=== PATIENT | female | born 1940 | race African-American/Black ===

== ENCOUNTER 2018-06-28 16:37 | Emergency (ER) | payer OTHER ==
[~2018-06-28] VITALS: Ht 157.5 cm; Wt 103.0 kg
[2018-06-28] MEDS ORDERED: ISOS20TA8 MT (17:00)
[2018-06-28] MEDS ORDERED: METF-416 MT (17:00)
[2018-06-28] MEDS ORDERED: FELO10TA MT (17:00)
[2018-06-28] MEDS ORDERED: FURO40TA5 MT (17:00)
[2018-06-28] MEDS ORDERED: ANAS1TAB7 MT (17:00)
[2018-06-28] MEDS ORDERED: P20 MT (17:00)
[2018-06-28] MEDS ORDERED: HYDR-4134 MT (17:00)
[2018-06-28 18:01] VITALS: BP 127/87
== END 2018-06-28 18:01 | disposition home or self-care (01) ==
LOC: ER 16:37
DX: I11.0 Hypertensive heart disease with heart failure (principal); I50.9 Heart failure, unspecified; Z79.899 Other long term (current) drug therapy; Z88.8 Allergy status to other drugs, medicaments and biological substances
CPT/HCPCS: 99283

== ENCOUNTER 2019-01-05 14:25 | Inpatient (IN) | payer OTHER ==
[~2019-01-05] VITALS: Ht 165.1 cm; Wt 101.3 kg
[~2019-01-05 14:25] MED LIST: ANAS1TAB7 MT; FELO10TA MT; FURO40TA5 MT; HYDR-4134 MT; ISOS20TA8 MT; METF-416 MT; P20 MT
[2019-01-05] MEDS ORDERED: NITROGLYCERIN OINT 1GM/INCH UDPKT TD ONE (15:15)
[2019-01-05] MEDS ORDERED: FUROSEMIDE 40MG/4ML VIAL IV ONE (15:15)
[2019-01-05] MEDS ORDERED: ASPIRIN 81MG TABLET PO ONE (15:15)
[2019-01-05 16:18] LABS: CHLORIDE 95 mEq/L (98-107)
[2019-01-05 16:29] LABS: INR 1.3; PARTIAL THROMBOPLASTIN TIME 28.5 sec (23.4-31.0); PROTHROMBIN TIME 13.1 sec (9.6-11.0)
[2019-01-05 16:36] LABS: HEMATOCRIT. 34.1 % (36.0-48.0); HEMOGLOBIN. 11.3 g/dL (12.0-16.0); MEAN CORPUSCULAR VOLUME 84.6 fL (81.0-99.0); MEAN PLATELET VOLUME 8.8 fl (7.4-10.4); PLATELET 233 x1000/uL (130-400); RED BLOOD CELL COUNT 4.04 mill/uL (4.2-5.4); RED CELL DISTRIBUTION WIDTH 16.8 % (11.6-14.6)
[2019-01-05] MEDS ORDERED: HEPARIN 25,000 UNITS PREMIX 500 ML IV SCH ×2 (17:00→23:15)
[2019-01-05] MEDS ORDERED: HEPARIN 5000 UNITS/ML VIAL IV ONE (17:00)
[2019-01-05 17:08] LABS: PLATELET ESTIMATE NORMAL
[2019-01-05] MEDS ORDERED: HEPARIN BOLUS PRN aPTT 37-44 IV (17:15)
[2019-01-05] MEDS ORDERED: HEPARIN BOLUS PRN aPTT <36 IV (17:15)
[2019-01-05] MEDS ORDERED: HEPARIN 80 UNITS/KG BOLUS IV NR (17:30)
[2019-01-05] MEDS: HEPARIN 25,000 UNITS PREMIX 500 ML IV SCH (17:50)
[2019-01-05 20:40] VITALS: BP 103/49
[2019-01-05] MEDS ORDERED: IPRATROPIUM/ALBUTEROL 0.5-3(2.5)MG/3ML NEB HHN PRN (23:30)
[2019-01-05] MEDS ORDERED: DEXTROSE 50% WATER 50ML SYRINGE IV PRN (23:30)
[2019-01-05] MEDS ORDERED: MAGNESIUM/ALUMINUM HYDROXIDE/SIMETHICONE 30ML UDC PO PRN (23:30)
[2019-01-05] MEDS: BLOOD SUGAR DIAGNOSTIC STRIP TEST SCH (23:45)
[2019-01-05] MEDS: INSULIN LISPRO 100 UNITS/ML SUBCUT SCH (23:56)
[2019-01-06] VITALS (7 sets, daily range): BP systolic 94–113; BP diastolic 49–57
[2019-01-06 01:07] LABS: INR 1.3; PROTHROMBIN TIME 12.7 sec (9.6-11.0)
[2019-01-06] MEDS: PANTOPRAZOLE 40MG DR TABLET PO SCH (06:20)
[2019-01-06] MEDS: BLOOD SUGAR DIAGNOSTIC STRIP TEST SCH ×3 (06:25→21:00)
[2019-01-06] MEDS: INSULIN LISPRO 100 UNITS/ML SUBCUT SCH ×4 (06:34→22:08)
[2019-01-06 06:55] LABS: HEMATOCRIT 30.3 % (36.0-48.0); HEMOGLOBIN 10.2 g/dL (12.0-16.0); MEAN CORPUSCULAR HEMOGLOBIN 28.3 pg (28.0-32.0); MEAN CORPUSCULAR VOLUME 84.3 fL (81.0-99.0); PLATELET 223 x1000/uL (130-400); RED CELL DISTRIBUTION WIDTH 16.7 % (11.6-14.6)
[2019-01-06 07:52] LABS: CHLORIDE 97 mEq/L (98-107)
[2019-01-06 08:01] LABS: LDL CHOLESTEROL 34 mg/dL (5-100)
[2019-01-06 08:02] LABS: HDL CHOLESTEROL 56 mg/dL (40-59)
[2019-01-06] MEDS: HYDROCODONE/ACETAMINOPHEN 5/325MG TABLET PO PRN (10:53)
[2019-01-06] MEDS ORDERED: HYDRALAZINE 20MG/ML VIAL IV PRN (12:00)
[2019-01-06] MEDS ORDERED: DIPHENHYDRAMINE 50MG/ML VIAL IV PRN (12:00)
[2019-01-06 12:11] LABS: INR 1.2; PARTIAL THROMBOPLASTIN TIME 47.3 sec (23.4-31.0); PROTHROMBIN TIME 12.1 sec (9.6-11.0)
[2019-01-06 14:09] LABS: BG CARBOXYHEMOGLOBIN 0.4 % (0.5-1.5); BG FRACTION INSPIRED OXYGEN 21; BG HCO3 ACT 23.1 mmol/L (22.0-26.0); BG METHEMOGLOBIN 0.5 % (0.0-1.5); BG OXYGEN SATURATION 83.9 % (92.0-98.5); BG OXYHEMOGLOBIN 83.1 % (94.0-97.0); BG PCO2 45.8 mmHg (35.0-45.0); BG PH 7.321 (7.350-7.450); BG PO2 53.3 mmHg (75.0-100.0); BG SAMPLE SITE LEFT RADIAL; BG TOTAL HEMOGLOBIN 11.4 g/dL (12.0-18.0); BG VENT MODE ROOM AIR
[2019-01-06] MEDS ORDERED: SODIUM CHLORIDE 0.9% 1,000 ML IV ONE (15:00)
[2019-01-06] MEDS: HEPARIN 25,000 UNITS PREMIX 500 ML IV SCH (15:04)
[2019-01-06] MEDS ORDERED: CYAN1TAB43 MT (19:57)
[2019-01-06] MEDS ORDERED: DOCU-150 PO (19:57)
[2019-01-06] MEDS ORDERED: ASPI-1158 PO (19:57)
[2019-01-06] MEDS ORDERED: POTASSIUM CL 10% PO (19:57)
[2019-01-06] MEDS ORDERED: ALIS300T PO (19:57)
[2019-01-06] MEDS ORDERED: POTA-79 PO (19:57)
[2019-01-06 22:36] LABS: CLARITY URINE CLOUDY (CLEAR); COLOR URINE YELLOW (YELLOW); KETONES URINE NEGATIVE (NEGATIVE); LEUKOCYTE ESTERASE URINE 2+ (NEGATIVE); NITRITE URINE NEGATIVE (NEGATIVE); OCCULT BLOOD URINE NEGATIVE (NEGATIVE); PROTEIN URINE NEGATIVE (NEGATIVE); SPECIFIC GRAVITY URINE 1.014 (1.005-1.030); UROBILINOGEN URINE 0.2 E.U./dL (0.2-1.0)
[2019-01-06 22:53] LABS: *AMPHETAMINES SCREEN URINE NEGATIVE (NEGATIVE); *BARBITURATES SCREEN URINE NEGATIVE (NEGATIVE); *BENZODIAZEPINES SCREEN URINE NEGATIVE (NEGATIVE); *COCAINE SCREEN URINE NEGATIVE (NEGATIVE)
[2019-01-06 22:54] LABS: CANNABINOID URINE SCREEN NEGATIVE (NEGATIVE); METHADONE URINE SCREEN NEGATIVE (NEGATIVE); OPIATES URINE SCREEN PRESUMTIVE POSITIVE (NEGATIVE); PHENCYCLIDINE URINE SCREEN NEGATIVE (NEGATIVE)
[2019-01-07] VITALS (18 sets, daily range): BP systolic 96–126; BP diastolic 51–73
[2019-01-07] MEDS: IPRATROPIUM/ALBUTEROL 0.5-3(2.5)MG/3ML NEB HHN SCH ×4 (01:43→22:26)
[2019-01-07] MEDS: BLOOD SUGAR DIAGNOSTIC STRIP TEST SCH ×4 (06:22→21:07)
[2019-01-07] MEDS: PANTOPRAZOLE 40MG DR TABLET PO SCH (06:22)
[2019-01-07] MEDS: INSULIN LISPRO 100 UNITS/ML SUBCUT SCH ×4 (07:21→21:51)
[2019-01-07 08:58] LABS: HEMATOCRIT 31.1 % (36.0-48.0); HEMOGLOBIN 10.2 g/dL (12.0-16.0); MEAN CORPUSCULAR HEMOGLOBIN 27.9 pg (28.0-32.0); MEAN CORPUSCULAR VOLUME 85.3 fL (81.0-99.0); PLATELET 219 x1000/uL (130-400); RED BLOOD CELL COUNT 3.65 mill/uL (4.2-5.4)
[2019-01-07] MEDS: BUDESONIDE 0.5MG/2ML NEB HHN SCH ×3 (09:24→22:25)
[2019-01-07 09:38] LABS: T4 FREE 1.47 ng/dL (0.76-1.46)
[2019-01-07] MEDS ORDERED: LIDOCAINE HCL 1% 20ML VIAL (Pyxis) INJ ONE (10:26)
[2019-01-07] MEDS ORDERED: SODIUM BICARBONATE 4% (2.4MEQ) 5ML VIAL IV ONE (10:27)
[2019-01-07] MEDS ORDERED: FENTANYL CITRATE/PF 50MCG/ML 2ML VIAL ONE (11:06)
[2019-01-07] MEDS ORDERED: FLUCONAZOLE 200 MG/100ML BAG 100 MG in CONTAINER,EMPTY 0 BAG IV SCH (11:30)
[2019-01-07] MEDS ORDERED: FENTANYL CITRATE/PF 50MCG/ML 2ML VIAL IV ONE (12:00)
[2019-01-07] MEDS: LEVOFLOXACIN 500MG PREMIX 100 ML IV NR ×2 (13:53→15:14)
[2019-01-07] MEDS ORDERED: HEPARIN 25,000 UNITS PREMIX 500 ML IV SCH (14:00)
[2019-01-07] MEDS: HEPARIN 25,000 UNITS PREMIX 500 ML IV SCH (18:11)
[2019-01-07] MEDS: HYDROCODONE/ACETAMINOPHEN 5/325MG TABLET PO PRN (23:41)
[2019-01-08 00:23] VITALS: BP 148/62
[2019-01-08 04:00] VITALS: BP 115/57
[2019-01-08 06:13] LABS: HEMATOCRIT 29.5 % (36.0-48.0); HEMOGLOBIN 9.8 g/dL (12.0-16.0); MEAN CORPUSCULAR HEMOGLOBIN 27.9 pg (28.0-32.0); PLATELET 225 x1000/uL (130-400); RED BLOOD CELL COUNT 3.51 mill/uL (4.2-5.4)
[2019-01-08 06:32] LABS: CHLORIDE 100 mEq/L (98-107)
[2019-01-08] MEDS: PANTOPRAZOLE 40MG DR TABLET PO SCH (06:49)
[2019-01-08] MEDS: BLOOD SUGAR DIAGNOSTIC STRIP TEST SCH ×4 (06:49→21:22)
[2019-01-08] MEDS: INSULIN LISPRO 100 UNITS/ML SUBCUT SCH ×4 (06:53→21:38)
[2019-01-08 08:00] VITALS: BP 133/61
[2019-01-08] MEDS: DOCUSATE SODIUM 100MG CAPSULE PO PRN (08:56)
[2019-01-08 12:00] VITALS: BP 109/59
[2019-01-08] MEDS ORDERED: LEVOFLOXACIN 250MG PREMIX 50 ML IV SCH (12:00)
[2019-01-08] MEDS ORDERED: FLUCONAZOLE 200 MG/100ML BAG 100 ML IV SCH (14:00)
[2019-01-08] MEDS: IPRATROPIUM/ALBUTEROL 0.5-3(2.5)MG/3ML NEB HHN SCH ×2 (15:25→20:46)
[2019-01-08 16:00] VITALS: BP 112/50
[2019-01-08] MEDS: APIXABAN 5 MG TABLET PO SCH (18:23)
[2019-01-08 20:00] VITALS: BP 124/61
[2019-01-08] MEDS: BUDESONIDE 0.5MG/2ML NEB HHN SCH (20:46)
[2019-01-08] MEDS: HYDROCODONE/ACETAMINOPHEN 5/325MG TABLET PO PRN (21:22)
[2019-01-09] VITALS: BP 118/63
[2019-01-09] MEDS: IPRATROPIUM/ALBUTEROL 0.5-3(2.5)MG/3ML NEB HHN SCH ×4 (01:30→22:12)
[2019-01-09 04:00] VITALS: BP 117/48
[2019-01-09] MEDS: PANTOPRAZOLE 40MG DR TABLET PO SCH (06:38)
[2019-01-09] MEDS: INSULIN LISPRO 100 UNITS/ML SUBCUT SCH ×4 (06:38→20:34)
[2019-01-09] MEDS: BLOOD SUGAR DIAGNOSTIC STRIP TEST SCH ×4 (06:38→20:34)
[2019-01-09 07:12] LABS: HEMOGLOBIN 9.5 g/dL (12.0-16.0); MEAN CORPUSCULAR HEMOGLOBIN 27.7 pg (28.0-32.0); MEAN CORPUSCULAR VOLUME 84.6 fL (81.0-99.0); PLATELET 215 x1000/uL (130-400); RED BLOOD CELL COUNT 3.43 mill/uL (4.2-5.4); RED CELL DISTRIBUTION WIDTH 16.9 % (11.6-14.6)
[2019-01-09 07:33] LABS: CHLORIDE 99 mEq/L (98-107)
[2019-01-09] MEDS: BUDESONIDE 0.5MG/2ML NEB HHN SCH (08:10)
[2019-01-09 08:27] VITALS: BP 112/60
[2019-01-09] MEDS: APIXABAN 5 MG TABLET PO SCH ×2 (08:58→18:28)
[2019-01-09 11:51] VITALS: BP 106/53
[2019-01-09] MEDS ORDERED: LACTULOSE 20G/30ML UDC PO PRN (12:45)
[2019-01-09] MEDS ORDERED: LACTULOSE 20G/30ML UDC PO NR (12:45)
[2019-01-09] MEDS ORDERED: LEVOFLOXACIN 250MG TABLET PO SCH (14:00)
[2019-01-09 15:17] VITALS: BP 117/56
[2019-01-09] MEDS ORDERED: CEFTRIAXONE 1 G PREMIX 50 ML IV SCH (17:45)
[2019-01-09] MEDS: FLUCONAZOLE 100MG TABLET PO SCH (18:28)
[2019-01-09 20:00] VITALS: BP 111/54
[2019-01-09] MEDS: CEFTRIAXONE 1 G PREMIX 50 ML IV SCH (20:35)
[2019-01-09] MEDS ORDERED: NON FORMULARY PATIENT HOME MED PO PRN (21:15)
[2019-01-09] MEDS: ACETAMINOPHEN 325MG TABLET PO PRN (21:35)
[2019-01-10] VITALS: BP 90/44
[2019-01-10] MEDS: IPRATROPIUM/ALBUTEROL 0.5-3(2.5)MG/3ML NEB HHN SCH ×4 (02:48→21:00)
[2019-01-10 04:00] VITALS: BP 98/62
[2019-01-10] MEDS: BLOOD SUGAR DIAGNOSTIC STRIP TEST SCH ×4 (06:36→21:07)
[2019-01-10] MEDS: PANTOPRAZOLE 40MG DR TABLET PO SCH (06:36)
[2019-01-10 06:55] LABS: BASOPHILS % 0.4 % (0.0-2.0); EOSINOPHILS % 3.6 % (0.0-5.0); HEMATOCRIT. 29.2 % (36.0-48.0); HEMOGLOBIN. 9.6 g/dL (12.0-16.0); LYMPHOCYTES % 18.8 % (20.0-50.0); MEAN CORPUSCULAR HEMOGLOBIN 27.7 pg (28.0-32.0); MEAN CORPUSCULAR VOLUME 84.5 fL (81.0-99.0); MEAN PLATELET VOLUME 8.4 fl (7.4-10.4); MONOCYTES % 10.7 % (2.0-8.0); NEUTROPHILS % 66.5 % (40.0-76.0); PLATELET 233 x1000/uL (130-400); RED BLOOD CELL COUNT 3.45 mill/uL (4.2-5.4); RED CELL DISTRIBUTION WIDTH 16.8 % (11.6-14.6)
[2019-01-10] MEDS: INSULIN LISPRO 100 UNITS/ML SUBCUT SCH ×4 (06:57→21:18)
[2019-01-10 07:04] LABS: CHLORIDE 99 mEq/L (98-107)
[2019-01-10] MEDS ORDERED: NA PHOS,M-B/NA PHOS,DI-BA ENEMA 118ML PR NR (08:15)
[2019-01-10 08:18] VITALS: BP 109/62
[2019-01-10] MEDS: FLUCONAZOLE 100MG TABLET PO SCH (09:43)
[2019-01-10] MEDS: APIXABAN 5 MG TABLET PO SCH ×2 (09:43→17:12)
[2019-01-10] MEDS: BUDESONIDE 0.5MG/2ML NEB HHN SCH (10:15)
[2019-01-10 11:39] VITALS: BP 89/53
[2019-01-10] MEDS: ACETAMINOPHEN 325MG TABLET PO PRN (14:25)
[2019-01-10] MEDS: DOCUSATE SODIUM 100MG CAPSULE PO PRN (14:28)
[2019-01-10 15:40] VITALS: BP 121/58
[2019-01-10] MEDS ORDERED: LIRA0.6P SQ (15:51)
[2019-01-10 20:00] VITALS: BP 109/60
[2019-01-10] MEDS: CEFTRIAXONE 1 G PREMIX 50 ML IV SCH (21:06)
[2019-01-10] MEDS: HYDROCODONE/ACETAMINOPHEN 5/325MG TABLET PO PRN (23:37)
[2019-01-11] VITALS: BP 114/57
[2019-01-11] MEDS: IPRATROPIUM/ALBUTEROL 0.5-3(2.5)MG/3ML NEB HHN SCH ×4 (02:24→20:28)
[2019-01-11 04:00] VITALS: BP 117/57
[2019-01-11] MEDS: BLOOD SUGAR DIAGNOSTIC STRIP TEST SCH ×4 (06:45→21:08)
[2019-01-11 06:52] LABS: BASOPHILS % 0.7 % (0.0-2.0); EOSINOPHILS % 4.4 % (0.0-5.0); HEMATOCRIT. 32.3 % (36.0-48.0); HEMOGLOBIN. 10.4 g/dL (12.0-16.0); LYMPHOCYTES % 17.5 % (20.0-50.0); MEAN CORPUSCULAR HEMOGLOBIN 27.5 pg (28.0-32.0); MEAN CORPUSCULAR VOLUME 85.4 fL (81.0-99.0); MEAN PLATELET VOLUME 8.2 fl (7.4-10.4); NEUTROPHILS % 67.4 % (40.0-76.0); PLATELET 253 x1000/uL (130-400); RED BLOOD CELL COUNT 3.78 mill/uL (4.2-5.4); RED CELL DISTRIBUTION WIDTH 16.8 % (11.6-14.6)
[2019-01-11 07:05] LABS: CHLORIDE 101 mEq/L (98-107)
[2019-01-11 08:00] VITALS: BP 111/56
[2019-01-11] MEDS: INSULIN LISPRO 100 UNITS/ML SUBCUT SCH ×4 (08:19→21:00)
[2019-01-11] MEDS: FLUCONAZOLE 100MG TABLET PO SCH (08:20)
[2019-01-11] MEDS: APIXABAN 5 MG TABLET PO SCH ×2 (08:20→17:56)
[2019-01-11] MEDS: FAMOTIDINE 20MG TABLET PO SCH ×2 (08:21→17:56)
[2019-01-11 12:00] VITALS: BP 111/58
[2019-01-11] MEDS ORDERED: SODIUM POLYSTYRENE SULFONATE 15 G/60 ML BOT PO NR (12:30)
[2019-01-11] MEDS: ACETAMINOPHEN 325MG TABLET PO PRN (13:00)
[2019-01-11 16:00] VITALS: BP 113/61
[2019-01-11] MEDS: CEFTRIAXONE 1 G PREMIX 50 ML IV SCH (18:58)
[2019-01-11 20:00] VITALS: BP 104/56
[2019-01-12] VITALS: BP 118/59
[2019-01-12] MEDS: ACETAMINOPHEN 325MG TABLET PO PRN ×2 (00:51→09:21)
[2019-01-12] MEDS: IPRATROPIUM/ALBUTEROL 0.5-3(2.5)MG/3ML NEB HHN SCH ×4 (00:54→20:41)
[2019-01-12 04:00] VITALS: BP 114/58
[2019-01-12] MEDS: BLOOD SUGAR DIAGNOSTIC STRIP TEST SCH ×4 (06:05→20:15)
[2019-01-12] MEDS: INSULIN LISPRO 100 UNITS/ML SUBCUT SCH ×4 (06:07→21:42)
[2019-01-12 08:00] VITALS: BP 116/59
[2019-01-12] MEDS: FLUCONAZOLE 100MG TABLET PO SCH (09:13)
[2019-01-12] MEDS: APIXABAN 5 MG TABLET PO SCH ×2 (09:14→17:43)
[2019-01-12] MEDS: FAMOTIDINE 20MG TABLET PO SCH ×2 (09:14→17:43)
[2019-01-12 12:00] VITALS: BP 114/63
[2019-01-12 12:41] LABS: HEMATOCRIT 27.6 % (36.0-48.0); HEMOGLOBIN 9.1 g/dL (12.0-16.0); MEAN CORPUSCULAR VOLUME 84.5 fL (81.0-99.0); PLATELET 268 x1000/uL (130-400); RED BLOOD CELL COUNT 3.27 mill/uL (4.2-5.4); RED CELL DISTRIBUTION WIDTH 16.8 % (11.6-14.6)
[2019-01-12 12:52] LABS: CHLORIDE 101 mEq/L (98-107)
[2019-01-12 16:00] VITALS: BP 117/57
[2019-01-12] MEDS: CEFTRIAXONE 1 G PREMIX 50 ML IV SCH (18:29)
[2019-01-12] MEDS: HYDROCODONE/ACETAMINOPHEN 5/325MG TABLET PO PRN (18:43)
[2019-01-12 20:00] VITALS: BP 130/55
[2019-01-13] VITALS: BP 98/45
[2019-01-13] MEDS: IPRATROPIUM/ALBUTEROL 0.5-3(2.5)MG/3ML NEB HHN SCH (00:45)
[2019-01-13 04:00] VITALS: BP 116/61
[2019-01-13] MEDS: BLOOD SUGAR DIAGNOSTIC STRIP TEST SCH ×3 (06:09→17:20)
[2019-01-13] MEDS: HYDROCODONE/ACETAMINOPHEN 5/325MG TABLET PO PRN ×2 (06:28→17:34)
[2019-01-13 06:41] LABS: HEMATOCRIT 30.5 % (36.0-48.0); MEAN CORPUSCULAR HEMOGLOBIN 27.9 pg (28.0-32.0); MEAN CORPUSCULAR VOLUME 85.1 fL (81.0-99.0); PLATELET 274 x1000/uL (130-400); RED BLOOD CELL COUNT 3.59 mill/uL (4.2-5.4); RED CELL DISTRIBUTION WIDTH 16.9 % (11.6-14.6)
[2019-01-13 06:48] LABS: CHLORIDE 101 mEq/L (98-107)
[2019-01-13] MEDS: INSULIN LISPRO 100 UNITS/ML SUBCUT SCH ×3 (07:09→17:39)
[2019-01-13 08:00] VITALS: BP 113/56
[2019-01-13] MEDS: FAMOTIDINE 20MG TABLET PO SCH ×2 (09:29→17:34)
[2019-01-13] MEDS: FLUCONAZOLE 100MG TABLET PO SCH (09:29)
[2019-01-13] MEDS: APIXABAN 5 MG TABLET PO SCH ×2 (09:29→17:34)
[2019-01-13 12:00] VITALS: BP 109/50
[2019-01-13 16:00] VITALS: BP 119/59
[2019-01-13 17:34] VITALS: BP 119/59
[2019-01-16] MEDS ORDERED: APIXABAN 5 MG TABLET PO SCH (09:00)
== END 2019-01-13 20:32 | DRG 682 ==
LOC: ER 14:51 → 6WST 17:35 → EDBEDREQ 17:41 → ENRESERV 19:13 → 5WST 01-07 12:31
PROVIDERS: ADMIT Internal Medicine; ATTEND Internal Medicine
PROC: 0BBK3ZX Excision of Right Lung, Percutaneous Approach, Diagnostic (ICD-10-PCS; principal; 2019-01-07)
DX: N17.9 Acute kidney failure, unspecified (principal); I50.33 Acute on chronic diastolic (congestive) heart failure; I26.99 Other pulmonary embolism without acute cor pulmonale; I82.403 Acute embolism and thrombosis of unspecified deep veins of lower extremity, bilateral; D68.69 Other thrombophilia; J44.1 Chronic obstructive pulmonary disease with (acute) exacerbation; N39.0 Urinary tract infection, site not specified; E87.1 Hypo-osmolality and hyponatremia; E46 Unspecified protein-calorie malnutrition; I13.0 Hypertensive heart and chronic kidney disease with heart failure and stage 1 through stage 4 chronic kidney disease, or unspecified chronic kidney disease; C50.919 Malignant neoplasm of unspecified site of unspecified female breast; D64.9 Anemia, unspecified; E11.65 Type 2 diabetes mellitus with hyperglycemia; I11.0 Hypertensive heart disease with heart failure; M48.02 Spinal stenosis, cervical region; W18.30XA Fall on same level, unspecified, initial encounter; M13.861 Other specified arthritis, right knee; K46.9 Unspecified abdominal hernia without obstruction or gangrene; E11.22 Type 2 diabetes mellitus with diabetic chronic kidney disease; E86.9 Volume depletion, unspecified; N18.9 Chronic kidney disease, unspecified; E66.01 Morbid (severe) obesity due to excess calories; E86.0 Dehydration; I25.10 Atherosclerotic heart disease of native coronary artery without angina pectoris; F17.200 Nicotine dependence, unspecified, uncomplicated; E87.5 Hyperkalemia; I27.20 Pulmonary hypertension, unspecified; J44.9 Chronic obstructive pulmonary disease, unspecified; K59.00 Constipation, unspecified; M11.20 Other chondrocalcinosis, unspecified site; Z88.9 Allergy status to unspecified drugs, medicaments and biological substances; Z95.5 Presence of coronary angioplasty implant and graft; Z95.828 Presence of other vascular implants and grafts; Z99.81 Dependence on supplemental oxygen; Z86.718 Personal history of other venous thrombosis and embolism; Z85.3 Personal history of malignant neoplasm of breast; Z68.37 Body mass index [BMI] 37.0-37.9, adult; Z79.84 Long term (current) use of oral hypoglycemic drugs
CPT/HCPCS: 32405; 36415; 36600; 71045; 71250; 73560; 74018; 74176; 76770; 77012; 78582; 80048; 80061; 80305; 82375; 82805; 82962; 83036; 83880; 84439; 84443; 84484; 85027; 87077; 87186; 88305; 93005; 93306; 93970; 94640; 97162; 97530; 99285; A6261; A9558; J0696; J1450; J1644; J1815; J1940; J1956; J3010; J3490; J7050; J7620; J7626